=== PATIENT | female | born 1990 | race Caucasian/White ===

== ENCOUNTER → 2019-10-24 | Outpatient (CLI) | payer BC, SELFPAY ==
[2019-10-24 12:40] LABS: Absolute Lymphocyte Count 1.12 X10^3/uL (0.83-4.51); Absolute Neutrophil Count 3.1 X10^3/uL (2.0-7.7); Basophil# 0.02 X10^3/uL; Basophil% 0.4 % (0-1); Eosinophil# 0.07 X10^3/uL; Eosinophils% 1.5 % (0-5); Hematocrit 40.1 % (37-47); Lymphocyte # 1.12 X10^3/ul (4.0); Lymphocyte % 23.3 % (19-41); Mean Corp Hgb Conc 32.4 g/dL (32-36); Mean Corpuscular Hgb 29.7 pg (27.0-32.0); Mean Corpuscular Volume 91.8 fL (81-99); Mean Platelet Vol. 11.3 fl (6.2-12.0); Monocyte# 0.54 X10^3/uL; Monocyte% 11.2 % (0-10); NRBC Flagged by Analyzer 0 % (0-5); Neutrophil # 3.05 X10^3/uL (2.7-7.7); Neutrophil % 63.4 % (47-70); Platelet Count 231 K/mm3 (150-450); RBC Distribution Width CV 12.2 % (11.6-14.6); RBC Distribution Width SD 41.1 fl (35.1-43.9); Red Blood Count 4.37 M/mm3 (4.2-5.4); White Blood Count 4.8 K/mm3 (4.4-11.0)
[2019-10-24 13:21] LABS: ALB/GLOB Ratio 1.1 RATIO (0.9-2.4); AST(SGOT) 11 U/L (15-37); Alanine Aminotransfer ALT/SGPT 20 U/L (13-56); Albumin, Serum 3.7 g/dL (3.2-5.0); Alkaline Phosphatase 42 U/L (45-117); Anion Gap 5 (5-15); BUN 12 mg/dL (7-18); BUN/Creat Ratio 12.8 RATIO (10-20); Calcium,Total 8.9 mg/dL (8.5-10.1); Chloride 110 mmol/L (98-107); Creatinine, Serum 0.93 mg/dL (0.55-1.02); EST Glomerular Filtration Rate 75 mL/min (>60); Est Glom Filt Rate - Afr Amer 91 mL/min (>60); Globulin 3.5 g/dL (2.2-4.2); Glucose 87 mg/dL (74-106); Potassium 3.7 mmol/L (3.5-5.1); Protein, Total 7.2 g/dL (6.4-8.2); Sodium Level 140 mmol/L (136-145)
== END | disposition home or self-care (01) ==
LOC: MFPLAB 09:57
PROVIDERS: PCP Family Medicine; Visit Provider Family Medicine
DX: R10.9 Unspecified abdominal pain (principal)
CPT/HCPCS: 36415; 80053; 85025

== ENCOUNTER → 2019-11-10 | Outpatient (CLI) | payer BC, SELFPAY ==
[2019-11-12 07:06] LABS: Chlamydia By Nucleic Acid AMP Negative (Negative)
[2019-11-12 17:47] LABS: Gonococcus By Nucleic Acid AMP Negative (Negative); HPV Reflexed? NOT INDICATED
== END | disposition home or self-care (01) ==
LOC: LABSPEC 12:42
PROVIDERS: PCP Family Medicine; Referring Provider Nurse Practitioner Family; Visit Provider Nurse Practitioner Family
DX: Z00.00 Encounter for general adult medical examination without abnormal findings (principal)
CPT/HCPCS: 87491; 87591; 88175; G0145

== ENCOUNTER → 2019-12-24 | Outpatient (CLI) | payer BC, SELFPAY ==
--- NOTE | 2019-12-24 07:57 | US_ITS ---
STUDY: ABDOMINAL ULTRASOUND - RIGHT UPPER QUADRANT REASON FOR VISIT: Female, 29 years old CHRONIC EPIGASTRIC PAIN -- APPENDECTOMY 2000 TECHNIQUE: Ultrasound evaluation of the right upper quadrant was performed with real-time and static joel-scale imaging. TECHNICAL QUALITY: Adequate. COMPARISON: None. FINDINGS: Liver: The liver measures 15.5 cm. There is normal echogenicity of the liver. The bile ducts are within normal limits. There is hepatic color flow. The direction of portal flow is hepatopetal. There is no demonstrated mass lesion. Gallbladder: Normal distended gallbladder. The gallbladder wall measures 2.0 mm. There is a negative sonographic Huddleston''s sign. There is no pericholecystic fluid. There are no gallstones. Common Bile Duct (C.B.D.): The common bile duct measures 5.8 mm. Pancreas: Normal size of the head, body and tail of the pancreas. There is normal echogenicity of the pancreas. There is no demonstrated pancreatic mass or cyst. Right Kidney: Normal size of the right kidney. The right kidney measures 10.3 cm x 5.2 cm x 3.6 cm. Normal renal cortex. The right cortex measures 1.3 cm. There is no demonstrated renal mass or cyst. There is no right hydronephrosis. US/Abdomen Limited IMPRESSION: Normal right upper quadrant ultrasound examination. Electronically Signed: Renato Huang, at 8:42 EDT , Service support ,
== END | disposition home or self-care (01) ==
PROVIDERS: PCP Family Medicine; Referring Provider Family Medicine; Visit Provider Family Medicine
DX: R10.9 Unspecified abdominal pain (principal)
CPT/HCPCS: 76705

== ENCOUNTER → 2021-06-02 10:59 | Outpatient (CLI) | payer BC, SELFPAY ==
[2021-06-02 12:38] LABS: Anion Gap 6 (5-15); BUN 11 mg/dL (7-18); BUN/Creat Ratio 11.9 RATIO (10-20); Calcium,Total 8.8 mg/dL (8.5-10.1); Chloride 108 mmol/L (98-107); Cholesterol 207 mg/dL (200); Creatinine, Serum 0.93 mg/dL (0.55-1.02); EST Glomerular Filtration Rate 75 mL/min (>60); Est Glom Filt Rate - Afr Amer 91 mL/min (>60); Glucose 85 mg/dL (74-106); High Density Lipoprotein 63 mg/dL; Potassium 4.2 mmol/L (3.5-5.1); Sodium Level 139 mmol/L (136-145); Triglycerides 85 mg/dL; Very Low Density Lipoprotein 17 mg/dL (5-40)
== END ==
PROVIDERS: Nurse Practitioner Family
DX: Z13.1 Encounter for screening for diabetes mellitus (principal); Z13.220 Encounter for screening for lipoid disorders
CPT/HCPCS: 36415; 80048; 80061

== ENCOUNTER 2021-09-02 09:19 | Outpatient (RCR) | payer BC, SELFPAY | END 2021-09-02 09:46 | disposition home or self-care (01) | LOC: PT 09:19 | PROVIDERS: Referring Provider Nurse Practitioner Family; Visit Provider Nurse Practitioner Family | DX: M54.9 Dorsalgia, unspecified (principal) ==

== ENCOUNTER 2021-12-01 11:17 | Outpatient (CLI) | payer BC, SELFPAY ==
[2021-12-01 12:04] LABS: Absolute Lymphocyte Count 1.25 X10^3/uL (0.83-4.51); Basophil# 0.02 X10^3/uL; Basophil% 0.5 % (0-1); Eosinophils% 2.6 % (0-5); Hematocrit 40.1 % (37-47); Hemoglobin 12.6 g/dL (12.0-15.0); Lymphocyte # 1.25 X10^3/ul (0.83-4.51); Lymphocyte % 32.5 % (19-41); Mean Corp Hgb Conc 31.4 g/dL (32-36); Mean Corpuscular Hgb 29.5 pg (27.0-32.0); Mean Corpuscular Volume 93.9 fL (81-99); Mean Platelet Vol. 10.4 fl (6.2-12.0); Monocyte# 0.46 X10^3/uL; Monocyte% 11.9 % (0-10); NRBC Flagged by Analyzer 0 % (0-5); Neutrophil # 2.01 X10^3/uL (2.7-7.7); Neutrophil % 52.2 % (47-70); Platelet Count 210 K/mm3 (150-450); RBC Distribution Width CV 11.9 % (11.6-14.6); RBC Distribution Width SD 41.1 fl (35.1-43.9); Red Blood Count 4.27 M/mm3 (4.2-5.4); White Blood Count 3.9 K/mm3 (4.4-11.0)
[2021-12-01 12:27] LABS: Vitamin D,25 Hydroxy 29.5 ng/mL
[2021-12-01 12:34] LABS: Anion Gap 3 (5-15); BUN 14 mg/dL (7-18); BUN/Creat Ratio 16.3 RATIO (10-20); Calcium,Total 8.4 mg/dL (8.5-10.1); Chloride 110 mmol/L (98-107); Creatinine, Serum 0.86 mg/dL (0.55-1.02); EST Glomerular Filtration Rate 82 mL/min (>60); Est Glom Filt Rate - Afr Amer 99 mL/min (>60); Glucose 92 mg/dL (74-106); Potassium 3.7 mmol/L (3.5-5.1); Sodium Level 137 mmol/L (136-145); Thyroid Stim Hormone (TSH) 2.32 uIU/mL (0.358-3.74)
== END 2021-12-01 23:59 | disposition home or self-care (01) ==
PROVIDERS: PCP Nurse Practitioner Family; Referring Provider Nurse Practitioner Family; Visit Provider Nurse Practitioner Family
DX: F32.A Depression, unspecified (principal)
CPT/HCPCS: 36415; 80048; 82306; 84443; 85025

== ENCOUNTER → 2023-01-17 | Outpatient (CLI) | payer BC, SELFPAY ==
[2023-01-17 14:48] LABS: Absolute Lymphocyte Count 1.26 X10^3/uL (0.83-4.51); Absolute Neutrophil Count 2.7 X10^3/uL (2.0-7.7); Basophil# 0.03 X10^3/uL; Basophil% 0.7 % (0-1); Eosinophil# 0.11 X10^3/uL; Eosinophils% 2.4 % (0-5); Hematocrit 42.8 % (37-47); Hemoglobin 13.3 g/dL (12.0-15.0); Lymphocyte # 1.26 X10^3/ul (0.83-4.51); Lymphocyte % 27.5 % (19-41); Mean Corp Hgb Conc 31.1 g/dL (32-36); Mean Corpuscular Hgb 29.7 pg (27.0-32.0); Mean Corpuscular Volume 95.5 fL (81-99); Monocyte# 0.53 X10^3/uL; Monocyte% 11.5 % (0-10); NRBC Flagged by Analyzer 0 % (0-5); Neutrophil # 2.65 X10^3/uL (2.7-7.7); Neutrophil % 57.7 % (47-70); Platelet Count 263 K/mm3 (150-450); RBC Distribution Width CV 12.6 % (11.6-14.6); RBC Distribution Width SD 44.7 fl (35.1-43.9); Red Blood Count 4.48 M/mm3 (4.2-5.4); White Blood Count 4.6 K/mm3 (4.4-11.0)
[2023-01-17 15:23] LABS: Hemoglobin A1c 5.2 % (3.8-5.6)
[2023-01-17 15:35] LABS: AST(SGOT) 12 U/L (15-37); Alanine Aminotransfer ALT/SGPT 19 U/L (13-56); Albumin, Serum 3.9 g/dL (3.2-5.0); Alkaline Phosphatase 61 U/L (45-117); Anion Gap 5 (5-15); BUN 14 mg/dL (7-18); BUN/Creat Ratio 17.5 RATIO (10-20); Calcium,Total 9.3 mg/dL (8.5-10.1); Chloride 108 mmol/L (98-107); Cholesterol 214 mg/dL (200); EST Glomerular Filtration Rate 88 mL/min (>60); Est Glom Filt Rate - Afr Amer 107 mL/min (>60); Globulin 3.8 g/dL (2.2-4.2); Glucose 87 mg/dL (74-106); High Density Lipoprotein 65 mg/dL; Potassium 5.2 mmol/L (3.5-5.1); Protein, Total 7.7 g/dL (6.4-8.2); Sodium Level 139 mmol/L (136-145); Thyroid Stim Hormone (TSH) 1.33 uIU/mL (0.358-3.74); Triglycerides 43 mg/dL; Very Low Density Lipoprotein 9 mg/dL (5-40)
== END | disposition home or self-care (01) ==
LOC: MFPLAB 12:30
PROVIDERS: PCP Family Medicine; Visit Provider Family Medicine
DX: Z00.00 Encounter for general adult medical examination without abnormal findings (principal); Z13.0 Encounter for screening for diseases of the blood and blood-forming organs and certain disorders involving the immune mechanism; Z13.220 Encounter for screening for lipoid disorders; Z13.1 Encounter for screening for diabetes mellitus; Z13.29 Encounter for screening for other suspected endocrine disorder
CPT/HCPCS: 36415; 80053; 80061; 83036; 84443; 85025

== ENCOUNTER 2023-02-08 13:56 | Outpatient (CLI) | payer BC, SELFPAY ==
[2023-02-08 15:42] LABS: Potassium 4.1 mmol/L (3.5-5.1)
== END 2023-02-08 23:59 | disposition home or self-care (01) ==
LOC: MFPLAB 13:59
PROVIDERS: PCP Family Medicine; Visit Provider Family Medicine
DX: E87.5 Hyperkalemia (principal)
CPT/HCPCS: 36415; 84132

== ENCOUNTER → 2023-09-05 | Outpatient (CLI) | payer BC, SELFPAY ==
--- OUTSIDE RECORDS SUMMARY | 2023-09-05 12:43 | XMS RPT_ITS | CCD ---
Author Name Unknown Address [address] [place] [address] Organization [facility] Results Test Name Value Interpretation Reference Range Facil ity Summary Purpose Family History No Family History Records Found Advance Directives No Advanced Directives Records Found Additional Source Comments INFORMATION SOURCE (unrecogn ized section and content) FOR RECORDS PERTAINING TO PATIENTS WHO ARE OR HAVE BEEN ENROLLED IN A CHEMICAL DEPENDENCY/SUBSTANCEABUSE PROGRAM, SOME INFORMATION MAY BE OMITTED. This clinical summary was aggregated from multiple sources. Caution should be exercised in using it in the provision of clinical care. This summary normalizes information from multiple sources, and as a consequence, information in this document may materially change the coding, format and clinical context of patient data. In addition, data may be omitted in some cases. CLINICAL DECISIONS SHOULD BE BASED ON THE PRIMARY CLINICAL RECORDS. [employer] [facility]. provides no warranty or guarantee of the accuracy or completeness of information in this document.
[2023-09-11 17:07] LABS: HPV APTIMA, High Risk Positive (Negative)
[2023-09-11 21:55] LABS: HPV Reflexed? YES, CHARGE PATIENT
== END | disposition home or self-care (01) ==
LOC: LABSPEC 12:28
PROVIDERS: PCP Family Medicine; Referring Provider Family Medicine; Visit Provider Family Medicine
DX: Z01.419 Encounter for gynecological examination (general) (routine) without abnormal findings (principal)
CPT/HCPCS: 87624; 88175; G0145

== ENCOUNTER → 2023-10-30 | Outpatient (CLI) | payer BC, SELFPAY ==
--- NOTE | 2023-10-30 | IMM_PTH ---
PATHOLOGY RESULTS PATIENT: ZULEIMA MAYBERRY LOC: [facility] U#:[id number] AGE/SX: 32/F ROOM: RE10/30/[address]: Dr. Adriane Sibley DO : 1990 BED: DIS: 10/30/2023 SPEC #: [id number] RECD: 11/01/23 13:07 STATUS: KARAN ACACIA #: [id number] SWETA: 10/30/23 00:[address]: Adriane Sibley DEPT: IMMUNOHISTOCHEMISTRY RECD BY: Janeth Ríos ENTERED: 11/01/23 13:08 SP TYPE: IMMUNO OTHR DR: Barbara Collins DO Tissues: Uterine cervix, NOS Procedures: p16 (initial) KI-67 (add) PHYSICIAN & INSTITUTION [place] [id number] SPECIMEN INFORMATION: Tissue Source: B - Cervix at 3 o'clock Clinical Info: LGSIL, HPV positive Specimen Number: [id number] CPT code: 60122, 01827 METHODOLOGY: Deparaffinized sections of prefer/formalin-fixed tissue or PAP/DQ stained slides are incubated with monoclonal/polyclonal antibodies/oligonucleotide probes. Localization is made via biotin free immunoperoxidase method. Appropriate controls are performed and reacted as expected. Results on target cell population are indicated in the following table: RESULTS: ANTIBODY / CLONE RESULT Block B P16 (E6H4) positive, block-like Ki-67 (30-9) positive, high These tests were developed and their performance characteristics determined by [facility]. They may not have been cleared or approved by the U.S. Food and Drug Administration. The FDA has determined that such clearance or approval is not necessary. The above immunohistochemical/dualISH markers are ordered and reviewed by the Pathologist. INTERPRETATION: B. Cervix at 3 o'clock, biopsy: Focal severe squamous dysplasia, YUDI III (HSIL). AM:skip 11/02/2023
--- NOTE | 2023-10-30 14:30 | EMB_PTH ---
PATHOLOGY RESULTS PATIENT: ZULEIMA MAYBERRY LOC: [facility] U#:[id number] AGE/SX: 32/F ROOM: RE10/30/[address]: Dr. Adriane Siblye DO : 1990 BED: DIS: 10/30/2023 SPEC #: [id number] RECD: 10/31/23 07:56 STATUS: KARAN ROGER #: [id number] SWETA: 10/30/23 14:[address]: Adriane Sibley DEPT: SURGICAL PATHOLOGY RECD BY: Fabi Barger ENTERED: 10/31/23 07:57 SP TYPE: ENDOM BX/C OTHR DR: Barbara Collins DO Tissues: Endometrium, NOS Endocervical Procedures: Surgery Specimen Level IV HEADER OPERATION: Colposcopy PRE-OP DIAGNOSIS: LGSIL, HPV positive TISSUE SUBMITTED: A - Endocervical curettage, B - Cervix 3 o'clock MICROSCOPIC DIAGNOSIS A. Endocervix, curettings: Rare strips of benign glandular mucosa. B. Cervix at 3 o'clock, biopsy: Severe squamous dysplasia, YUDI III (HSIL). See comment. AM:skip 11/01/2023 COMMENT B. Results from immunohistochemistry ([id number]) for surrogate HPV marker (p16) will be reported separately. Case has been reviewed in consultation with Dr. Mari who concurs with the above diagnosis. IDC:SJ MICROSCOPIC DESCRIPTION Slides are reviewed. GROSS DESCRIPTION A - Received is a metallic endoscopic cytobrush with adherent minute fragments of arauz-red tissue brush in 2 ml of clear red fluid and labeled with the patient's name and and designated per the requisition as ECC . The material is dislodged from the brush and submitted for cytology preparation including cell block. B - Received in fixative is one container labeled with the patient's name and designated 3 o'clock cervix. The specimen consists of one irregular fragment of light arauz soft tissue that measures 0.4 x 0.4 x 0.1 cm. The specimen is totally submitted in one cassette. / JAYLEEN:skip 10/31/2023 TC:0 CPT: 18730 x2
== END | disposition home or self-care (01) ==
PROVIDERS: PCP Family Medicine; Visit Provider Obstetrics & Gynecology
DX: D06.9 Carcinoma in situ of cervix, unspecified (principal)
CPT/HCPCS: 88305; 88341; 88342

== ENCOUNTER 2023-12-04 10:57 | Day surgery (SDC) | payer BC, SELFPAY ==
--- NOTE | 2023-12-04 | IMM_PTH ---
PATIENT: ZULEIMA MAYBERRY LOC: [facility] [place] U#:[id number] AGE/SX: 32/F ROOM: RE12/04/[address]: Dr. Adriane Sibley DO : 1990 BED: DIS: 12/04/2023 SPEC #: [id number] RECD: 12/06/23 11:40 STATUS: KARAN REQ #: [id number] SWETA: 12/04/23 00:[address]: Adriane Sibley DEPT: IMMUNOHISTOCHEMISTRY RECD BY: Elvis Luciano ENTERED: 12/06/23 11:42 SP TYPE: IMMUNO OTHR DR: Barbara Collins DO Tissues: UTERINE CERVIX LEEP Procedures: p16 (initial) KI-67 (add) P16 (add) PHYSICIAN & INSTITUTION [place] [phone] SPECIMEN INFORMATION: Tissue Source: Leep cone Clinical Info: HGSIL on cytologic smear of cervix Specimen Number: [id number] CPT code: 52045,36028d2 METHODOLOGY: Deparaffinized sections of prefer/formalin-fixed tissue or PAP/DQ stained slides are incubated with monoclonal/polyclonal antibodies/oligonucleotide probes. Localization is made via biotin free immunoperoxidase method. Appropriate controls are performed and reacted as expected. Results on target cell population are indicated in the following table: RESULTS: ANTIBODY / CLONE RESULT Block 3 P16 (E6H4) positive, block staining Ki-67 (30-9) positive, high Block 4 P16 (E6H4) positive, block staining Ki-67 (30-9) positive, high These tests were developed and their performance characteristics determined by [facility]. They may not have been cleared or approved by the U.S. Food and Drug Administration. The FDA has determined that such clearance or approval is not necessary. The above immunohistochemical/dualISH markers are ordered and reviewed by the Pathologist. INTERPRETATION: Leep cone: Severe squamous dysplasia. JAYLEEN/ 12/07/23
--- NOTE | 2023-12-04 07:41 | HP.PCM_ITS ---
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: No Is patient in pain?: No Allergies No Known Allergies Allergy (Verified 11/26/23 13:06) Medications medroxyprogesterone 150 mg/mL intramuscular syringe (Depo-Provera) 150 mg IM [id number] 10/30/23 [History Confirmed 11/26/23] Is last menstrual period known: No Post menopausal: No Patient : No : No [facility] Medical History Encounter for screening for COVID-19 Surgical History History of appendectomy Family History Grandmother DiabetesGrandfather Diabetes Colon cancerMother Hypertension Social History Smoking Status: Current every day smoker alcohol intake: current alcohol intake frequency: holidays/special occasions only substance use type: does not use caffeine: Yes what type of physical activity do you participate in: walking seatbelt use: always do you feel safe at home: Yes additional social history: Single HPI LEEP Details: ZULEIMA MAYBERRY is a 32 year old who presents for pre-op LEEP visit. She was found to have HGSIL on biopsy after colposcopy. History 0 Elective abortions Hx Para Spontaneous abortions Hx # Term Pregnancies Ectopic pregnancies Hx # Pregnancies Multiple births # of living children ROS Const ROS Unobtainable: All systems reviewed & are unremarkable except as noted in H Resp Resp: Reports system reviewed and no additional complaints, except as documented; Denies cough GI GI: Reports as per HPI Psych Psych: Reports system reviewed and no additional complaints, except as documented Exam Const General: cooperative, healthy appearing, comfortable and no acute distress Resp Effort & Inspection: normal respiratory effort Skin General: no rashes or lesions noted Psych Appearance: grossly normal Speech and Movement: speech and movement normal Coding Level of Care Code Off vis,est,level 3 Diagnoses HGSIL on cytologic smear of cervix R87.613 YUDI III (cervical intraepithelial neoplasia grade III) with severe dysplasia D06.9 Assessment and Plan Assessment and Plan (1) HGSIL on cytologic smear of cervix: Status: Acute Plan: After discussing the patient's diagnosis and treatment plan options, patient wishes to proceed with surgical management. I have discussed with the patient the risks, benefits, and alternatives of the procedure which include but are not limited to risks of anesthesia, bleeding, infection, possible damage to bowel, bladder, or surrounding vasculature which could lead to additional surgery to evaluate any complications. Patient agrees to procedure and wishes to proceed. ACOG/uptodate references given for additional information regarding procedure. plan is for leep on 12/04/23 (2) YUDI III (cervical intraepithelial neoplasia grade III) with severe dysplasia: Status: Acute
[2023-12-04 11:22] VITALS: BP 113/69; PULSE 66; RESP 16; TEMP 36.7; O2SAT 100; BMI 24.2
[2023-12-04] MEDS: Lactated Ringers 1,000 ML 15 ML IV (11:29)
[2023-12-04 11:40] LABS: Hematocrit 38.8 % (37-47); Hemoglobin 12.6 g/dL (12.0-15.0); Mean Corp Hgb Conc 32.5 g/dL (32-36); Mean Corpuscular Hgb 29.8 pg (27.0-32.0); Mean Corpuscular Volume 91.7 fL (81-99); Platelet Count 220 K/mm3 (150-450); RBC Distribution Width CV 12.3 % (11.6-14.6); RBC Distribution Width SD 41.5 fl (35.1-43.9); Red Blood Count 4.23 M/mm3 (4.2-5.4); White Blood Count 5.2 K/mm3 (4.4-11.0)
[2023-12-04 11:41] LABS: Internal QC Validated? YES +Cl - CLEAR BKGD; Pregnancy, Urine Negative Negative
--- NOTE | 2023-12-04 12:39 | DCINST_ITS ---
Discharge Instructions Diet Discharge Diet: No restrictions Activity Discharge Activity: Return to Normal Activity and [address] (while taking narcotic pain mediations.) May resume sexual activity in: 4 weeks (Nothing in the vagina for 4 weeks.) Dressing / Incision Call your doctor if you observe: Fever of 101 or Higher and Using more than 1 pad per hour Follow Up Care Please Follow Up With: Adriane Sibley DO When: Call [phone] for follow-up appointment. Test Results: Test results from this visit will be discussed in further detail at your follow- up appointment, if applicable. Discharge Plan Admission Attending Provider: Adriane Sibley Primary Care Provider: Barbara Collins Discharge Orders/Prescriptions Prescriptions: No Action medroxyprogesterone [Depo-Provera] 150 mg/mL syringe 150 mg IM [id number] ibuprofen [IBU] 600 mg tablet 600 mg PO Q8H PRN (Reason: pain) Referrals / Follow Up: Barbaar Collins DO [Primary Care Provider] - Disposition Disposition (needs filled in before D/C Order can be placed): Home, Self Care
--- NOTE | 2023-12-04 12:45 | CONE_PTH ---
PATIENT: ZULEIMA MAYBERRY LOC: [facility] [place] U#:[id number] AGE/SX: 32/F ROOM: RE12/04/[address]: Dr. Adriane Sibley DO : 1990 BED: DIS: 12/04/2023 SPEC #: [id number] RECD: 12/04/23 16:15 STATUS: KARAN ACACIA #: [id number] SWETA: 12/04/23 12:[address]: Adriane Sibley DEPT: SURGICAL PATHOLOGY RECD BY: Lesley Joe ENTERED: 12/05/23 10:57 SP TYPE: Leep Cone MINO DR: Barbara Collins DO Tissues: UTERINE CERVIX LEEP Procedures: Surgery Specimen Level V HEADER OPERATION: Leep cone PRE-OP DIAGNOSIS: HGSIL on cytologic smear of cervix TISSUE SUBMITTED: Leep cone MICROSCOPIC DIAGNOSIS Leep cone, lesion: Moderate to severe squamous dysplasia with HPV changes (HGSIL and CINII-III). Moderate chronic inflammation and squamous metaplasia. Resection margins are free of dysplastic changes. See comment. /mr 12/06/2023 COMMENT The dysplastic changes also involve focal endocervical glands. Immunohistochemistry ([id number]) for surrogate HPV marker (p16) supports the above diagnosis. MICROSCOPIC DESCRIPTION Slides are reviewed. GROSS DESCRIPTION Received in fixative is one container labeled with the patient's name and designated [facility] cone. The specimen consists of two irregular fragments of arauz tissue that in aggregate measure in size from 1.5 to 2.5cm and varying in thickness from 0.5 to 0.6cm. The smaller fragment is inked, serially sectioned and totally submitted in cassette #1. The larger fragment is inked, serially sectioned and submitted in cassettes 2-4. / 12/05/23 TC:5 CPT:83602
[2023-12-04] MEDS: Lidocaine 1% /Epi 1:100 (20ml) 20 ML Vial (13:10)
[2023-12-04] MEDS: Iodine/Potassium Iodide 14ML Bottle 1 DRP TOPICAL (13:10)
[2023-12-04] MEDS: FERRIC SUBSULFATE 8 GM SOLN (13:20)
[2023-12-04 13:30] VITALS: BP 108/75; BP 113/69; PULSE 63; RESP 16; TEMP 36.2; O2SAT 95
--- NOTE | 2023-12-04 13:30 | OP.PCM_ITS ---
Problems Associated Problem List Diagnoses (1) YUDI III (cervical intraepithelial neoplasia grade III) with severe dysplasia: Report of Operation Date of Procedure: 12/04/23 Pre-Operative Diagnosis: cervical YUDI III Post-Operative Diagnosis: cervical YUDI III Surgery/Procedure Performed:: Loop electrocautery excisional procedure Description of Surgical Findings:: broad area of dysplasia on cervix noted from the 3:00 position around to the 12:00 position Surgeon: Adriane Sibley circuit board drafter: None Type of Anesthesia: MAC and Topical Anesth Estimated Blood Loss (mL): 0 Description of Procedure: Patient was taken to the operating room and placed under MAC anesthesia prepped and draped in normal sterile fashion the dorsal lithotomy position. Paracervical block was placed with 1% lidocaine and using a loop electrode the outer part of the cervix was removed including the squamocolumnar junction. The base of the cervix was cauterized around the borders and the base to obtain excellent hemostasis. Monsel's paste was placed and patient was awoken and taken recovery in stable condition. Complications none Admit VTE Documentation VTE Present on Admission: No VTE Mechan Device Prophylaxis: [facility]'s VTE Pharm Prophylaxis ordered?: No Multi Select Codes Urinary/Genital Urinary/Genital CPT Codes: 07011 LEEP
[2023-12-04 13:35] VITALS: BP 113/69; BP 95/62; PULSE 59; RESP 16; O2SAT 100
[2023-12-04 13:40] VITALS: BP 113/69; BP 92/60; PULSE 68; RESP 18; O2SAT 98
[2023-12-04 13:45] VITALS: BP 113/69; BP 91/56; PULSE 60; RESP 18; TEMP 36.1; O2SAT 100
[2023-12-04 14:44] VITALS: BP 113/69
== END 2023-12-04 14:47 | disposition home or self-care (01) ==
LOC: SDC 10:58 → AC 10:58
PROVIDERS: PCP Family Medicine; Referring Provider Obstetrics & Gynecology; Visit Provider Obstetrics & Gynecology
PROC: 0UBC7ZZ Excision of Cervix, Via Natural or Artificial Opening (ICD-10-PCS; CPT 57522; principal; 2023-12-04 12:30)
DX: D06.9 Carcinoma in situ of cervix, unspecified (principal); F17.200 Nicotine dependence, unspecified, uncomplicated
CPT/HCPCS: 57522; 00940; 81025; 85027; 88307; 88341; 88342; J7120; J2405

== ENCOUNTER → 2023-12-19 | Outpatient (CLI) | payer BC, SELFPAY ==
--- NOTE | 2023-12-19 10:22 | RAD_ITS ---
STUDY: X-RAY - LEFT WRIST REASON FOR EXAM: Female, 33 years old. PAIN TECHNIQUE: 3 view(s) of the wrist were obtained. COMPARISON: None. FINDINGS: Normal visualized distal radius and ulna. Normal radiocarpal articulation. Normal distal radioulnar articulation. Normal carpal bones. Normal carpal articulations. Normal carpometacarpal articulation of the thumb. Normal second through fifth carpometacarpal articulations. Normal visualized metacarpal bones. The soft tissue structures are unremarkable. RAD/Wrist min 3 Views IMPRESSION: Normal x-ray examination of the wrist. Electronically Signed: Yao Vidal MD at 23:39 EDT ,
== END | disposition home or self-care (01) ==
LOC: MTRAD 10:20
PROVIDERS: PCP Family Medicine; Referring Provider Family Medicine; Visit Provider Family Medicine
DX: M25.532 Pain in left wrist (principal)
CPT/HCPCS: 73110

== ENCOUNTER 2024-02-26 13:00 | Outpatient (RCR) | payer BC, SELFPAY ==
--- NOTE | 2024-01-02 13:55 | HP.OTEVAL ---
Patient's Visit Information Visit Information Visit Information: ZULEIMA MAYBERRY is a 33 year old F, referred to Occupational Therapy by Veronica Garza MD, with a diagnosis of L wrist Pain M25.539. Date of Evaluation: 01/02/24 Occupational Therapist: María Barragan Subjective Subjective: This 33 year old female presents this date for an OT eval due to L wrist pain which started about 17 days ago. pt seen for X ray which was unremarkable per report suspected tendonitis or a strain. Pt states pain feels sharp then some numbness in D4 and D5 for approx a week in a half periodically however has now subsided. pain ranges up to 7/10 and down to a 2/10. Pt has been wearing brace for approx 16 days. pt does not bring brace to eval. feeling better at this time however still feels slight pain. Pt has been wearing brace at work and off at home. Pt works in [employer]. Pt is R hand dominant. Pain L wrist: Current Pain Intensity: 1 Objective Objective/Observation: pt presents this date with full range of motion in L wrist and low grade pain approx 1/10. pt reports pain recently began to subside last few days however before this pt with limited ROM of L wrist due to pain impacting work and IADL activities. pt does not demonstrate swelling of wrist at this time B wrist circumference at 15 cm . 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 L hand 75 pounds Lateral Pinch: R hand 5 pounds L hand 3 pounds Tripod Pinch: R hand 2 L hand 2 pounds Edema Other: 15 cm circumfrentially B wrists Nine Hole Peg Right: 18 sec Left: 22 sec In-Hand Manipulation Finger to Palm Translation: Normal - Right and Normal - Left Quick DASH-Disab of Arm,Shoulder& Hand Quick DASH Score: 20.4525 Goals Goal:ROM equal to unaffected hand: Yes Goal:No pain with affected hand use: Yes Goal:Full use of affected hand in daily activities including work: Yes Other Goal: pt will improve quick dash score by 10-15 points for improved perceived use of L wrist during functional tasks within 6 weeks pt will demonstrate/ verbalize 100% accuracy in joint protection and positioning of L wrist during day to day tasks including work related tasks within 6 weeks pt will verbalize/ demonstrate 100% accuracy in proper bracing of L wrist in order to decrease pain and promote healing by second session pt will demonstrate 100% accuracy in Home Exercise Program for L wrist by second session Rehabilitation Rehabilitation Potential: Good Anticipated Interventions Anticipated Interventions: A/AAROM/PROM, Strengthening, Massage, Triggerpoint Release, Modalities, Orthoses, Joint Protection/Energy Conservation, Education re Diagnosis, Education re Self Massage Techniques and Home Program Visit Plan Frequency: 1-2x /Week Duration: 6 Weeks General Plan: modalities AROM/AAROM/PROM tendon glides strengthening positioning/ activity modification bracing TEXT: Thank you for the opportunity to evaluate your patient. For Medicare and Medicare HMO plans, please review the plan of care and approve it. It will need to be FAXED BACK to us at [phone] for Medicare purposes. Please let me know if there are questions or concerns regarding this plan of care. Physician Signature: Date:
--- NOTE | 2024-02-26 09:41 | HP.OTREVAL ---
Re-Evaluation Intro: Veronica Garza MD, It has been my pleasure to treat ZULEIMA MAYBERRY over the last 12 visits for L wrist Pain M25.539. Please see the progress note below for an update on the occupational therapy plan of care! 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 L lateral 8 L tripod 7 Plan Plan Frequency: 1-2x /Week Duration: 6 Weeks Plan: AROM/AAROM, PROM trigger point massage modalities bracing strengthening Goals Goals Patient Goals: Regain Mobility, Regain Strength, Decrease Pain, Decrease Swelling/Stiffness, Use Hand/Wrist/Arm Normally Again, Sleep Better, Decrease Tingling/Numbness, Increase ROM, Resume Former Household Responsibilities (Cooking,Cleaning,Yard, etc.) and Resume Hobbies Goal:ROM equal to unaffected hand: Yes Goal:No pain with affected hand use: Yes Goal:Full use of affected hand in daily activities including work: Yes Other Goal: pt will improve quick dash score by 10-15 points for improved perceived use of L wrist during functional tasks within 6 weeks pt will demonstrate/ verbalize 100% accuracy in joint protection and positioning of L wrist during day to day tasks including work related tasks within 6 weeks pt will verbalize/ demonstrate 100% accuracy in proper bracing of L wrist in order to decrease pain and promote healing by second session pt will demonstrate 100% accuracy in Home Exercise Program for L wrist by second session Anticipated Interventions Anticipated Interventions Anticipated Interventions: A/AAROM/PROM, Strengthening, Massage, Triggerpoint Release, Modalities, Orthoses, Joint Protection/Energy Conservation, Education re Diagnosis, Education re Self Massage Techniques and Home Program Re-Evaluation Ending Re-evaluation ending: Please do not hesitate to contact me at [phone] by phone or if you have questions or concerns regarding this new plan of care! Sincerely, María Barragan
--- NOTE | 2024-06-19 12:39 | HP.OT.NRP ---
Patient Information Patient Information: ZULEIMA MAYBERRY was seen in my office for initial evaluation on 01/02/24. The following Plan of Care was established for this patient: POC Established Initial Frequency: 1-2x /Week Initial Duration: 6 Weeks Plan: AROM/AAROM, PROM trigger point massage modalities bracing strengthening Anticipated Interventions Anticipated Interventions: A/AAROM/PROM, Strengthening, Massage, Triggerpoint Release, Modalities, Orthoses, Joint Protection/Energy Conservation, Education re Diagnosis, Education re Self Massage Techniques and Home Program Last Seen Last Seen: This patient was last seen in our office 02/26/24. Pertinent comments regarding their Occupational therapy will appear below: This 33 year old female seen for OT due to Dx of wrist pain. Pt seen for 13 visits pain management short arc ROM, bracing education, progression to gentle exercise as well as proprioceptive input. discharge at this time due to time lapse in services. At this point I will be discontinuing this patient from occupational therapy. I would be happy to see this patient again in the future if found appropriate by the physician. Thank you! María Barragan
== END 2024-02-26 19:00 | disposition home or self-care (01) ==
LOC: OT 13:00
PROVIDERS: PCP Family Medicine; Referring Provider Family Medicine; Visit Provider Family Medicine
DX: M25.532 Pain in left wrist (principal)
CPT/HCPCS: 97035; 97140; 97165; 97530

== ENCOUNTER → 2024-10-18 | Outpatient (CLI) | payer BC, SELFPAY ==
[2024-10-18 09:30] LABS: ALB/GLOB Ratio 1.1 RATIO (0.9-2.4); AST(SGOT) 9 U/L (15-37); Alanine Aminotransfer ALT/SGPT 18 U/L (13-56); Alkaline Phosphatase 51 U/L (45-117); Anion Gap 4 (5-15); BUN 9 mg/dL (7-18); BUN/Creat Ratio 9.9 RATIO (10-20); Calcium,Total 9.1 mg/dL (8.5-10.1); Chloride 108 mmol/L (98-107); Cholesterol 178 mg/dL (200); EST Glomerular Filtration Rate 76 mL/min (>60); Est Glom Filt Rate - Afr Amer 92 mL/min (>60); Globulin 3.6 g/dL (2.2-4.2); Glucose 83 mg/dL (74-106); High Density Lipoprotein 70 mg/dL; Potassium 4.7 mmol/L (3.5-5.1); Protein, Total 7.6 g/dL (6.4-8.2); Sodium Level 137 mmol/L (136-145); T4 Free Direct 0.94 ng/dL (0.76-1.46); Triglycerides 50 mg/dL; Very Low Density Lipoprotein 10 mg/dL (5-40)
[2024-10-18 09:39] LABS: Absolute Neutrophil Count 2.7 X10^3/uL (2.0-7.7); Basophil# 0.02 X10^3/uL; Basophil% 0.4 % (0-1); Eosinophil# 0.11 X10^3/uL; Eosinophils% 2.2 % (0-5); Hematocrit 43.5 % (37-47); Hemoglobin 14.4 g/dL (12.0-15.0); Lymphocyte % 31.7 % (19-41); Mean Corp Hgb Conc 33.1 g/dL (32-36); Mean Corpuscular Hgb 30.9 pg (27.0-32.0); Mean Corpuscular Volume 93.3 fL (81-99); Mean Platelet Vol. 10.4 fl (6.2-12.0); Monocyte% 11.9 % (0-10); NRBC Flagged by Analyzer 0 % (0-5); Neutrophil # 2.71 X10^3/uL (2.7-7.7); Neutrophil % 53.6 % (47-70); Platelet Count 251 K/mm3 (150-450); RBC Distribution Width CV 12.2 % (11.6-14.6); RBC Distribution Width SD 41.8 fl (35.1-43.9); Red Blood Count 4.66 M/mm3 (4.2-5.4); White Blood Count 5.1 K/mm3 (4.4-11.0)
[2024-10-20 07:59] LABS: Vitamin D,25 Hydroxy 42.4 ng/mL
[2024-10-22 17:07] LABS: Thyroid Stim Immunoglob <0.10 IU/L (0.00-0.55)
== END | disposition home or self-care (01) ==
LOC: LAB.FUTURE 08:12 → LAB 08:13
PROVIDERS: PCP Family Medicine; Visit Provider Family Medicine
DX: Z13.220 Encounter for screening for lipoid disorders (principal); E87.5 Hyperkalemia; R53.83 Other fatigue
CPT/HCPCS: 36415; 80053; 80061; 82306; 84439; 84443; 84445; 85025